=== PATIENT | female | born 1950 | race Caucasian/White ===

== ENCOUNTER 2019-07-12 08:34 | Day surgery (SDC) | payer MEDICARE, OTHER ==
[~2019-07-12 08:34] MED LIST: DORZOLAMIDE HCL 2%/TIMOLOL MALEAT 0.5% OPH SOLN 10 ML OD PRN; KETOROLAC TROMETHAMINE 0.45% 4 DROP/0.4 ML DROPERETTE OD PRN
[2019-07-12] MEDS ORDERED: CHONDR SU A NA/HYALUR INTRAOC KIT (SURGICARE) ONE (08:40)
[2019-07-12] MEDS ORDERED: EPINEPHRINE INJ/PF 1 MG/1 ML AMPULE ONE (08:40)
[2019-07-12] MEDS ORDERED: LIDOCAINE 1%/PHENYLEPHRINE 1.5% 1 ML VIAL ONE (08:40)
[2019-07-12] MEDS: TROPICAMIDE 1% OPH SOLN 3 ML OD PRN ×3 (10:15→10:35)
[2019-07-12] MEDS: CYCLOPENTOLATE 0.2%/PHENYLEPHRINE 1% OPH SOLN 2 ML OD PRN ×3 (10:15→10:35)
[2019-07-12] MEDS: BESIFLOXACIN HCL 0.6% OPH SUSP 5 ML BOTTLE OD PRN ×3 (10:15→11:08)
[2019-07-12] MEDS: TETRACAINE HCL 0.5% OPH SOLN 4 ML OD PRN ×3 (10:15→10:43)
[2019-07-12] MEDS ORDERED: MIDAZOLAM 2 MG/2 ML INJ ONE (10:31)
--- NOTE | 2019-07-12 13:00 | Operative Report ---
Operative Report-[facility] Operative Report: DATE OF SURGERY: 07-05 PREOPERATIVE DIAGNOSIS: Cataract, right eye POSTOPERATIVE DIAGNOSIS: Cataract, right eye OPERATION: Cataract extraction with insertion of an IOL of the right eye. Intraocular Lens Model: [[id number]] SURGEON: David Watkins MD ANESTHESIA: Topical PROCEDURE: After obtaining appropriate consent, the patient's right eye was prepped and draped in a sterile fashion as well as the surgeon in the sterile manner and cataract surgery was started. First a paracentesis blade was used to make a side-port incision. Viscoelastic was used to inflate the anterior chamber. Next a 2.4 mm incision was made with a 2.4 mm blade, clear corneal temporarily. A continuous capsulorrhexis was made using a cystotome and Utrata forceps. Following this hydrodissection was carried out to make the presley fully loose and mobile and it was rotated. Following this, a divide and conquer technique was used to phacoemulsify the presley. The remaining cortex was removed with an irrigation/aspiration. Provisc was instilled into the capsular bag to inflate the bag. The intraocular lens was placed. The remaining viscoelastic material was removed with irrigation/aspiration. Following this, the incision was found to be watertight. Besivance and Cosopt was instilled into the eye and a protective shield was placed over the eye. The patient was reurned to the postoperative recovery in a stable condition.
== END 2019-07-12 11:50 | disposition home or self-care (01) ==
LOC: SC 08:34
PROVIDERS: ATTEND Internal Medicine
DX: H25.89 Other age-related cataract (principal); H25.812 Combined forms of age-related cataract, left eye; H40.1112 Primary open-angle glaucoma, right eye, moderate stage; H40.012 Open angle with borderline findings, low risk, left eye; I10 Essential (primary) hypertension; J45.909 Unspecified asthma, uncomplicated; Z87.891 Personal history of nicotine dependence; Z79.51 Long term (current) use of inhaled steroids; Z79.899 Other long term (current) drug therapy; Z99.81 Dependence on supplemental oxygen; J43.9 Emphysema, unspecified
CPT/HCPCS: 00142; 66984; V2632; J2250; J3490 ×2; A9270; J0171; J2370; 142

== ENCOUNTER 2019-08-16 06:45 | Day surgery (SDC) | payer MEDICARE, OTHER ==
[~2019-08-16 06:45] MED LIST changes: -DORZOLAMIDE HCL 2%/TIMOLOL MALEAT 0.5% OPH SOLN 10 ML OD PRN; -KETOROLAC TROMETHAMINE 0.45% 4 DROP/0.4 ML DROPERETTE OD PRN; +KETOROLAC TROMETHAMINE 0.45% 4 DROP/0.4 ML DROPERETTE OS PRN
[2019-08-16] MEDS ORDERED: MIDAZOLAM 2 MG/2 ML INJ ONE (06:50)
[2019-08-16] MEDS: BESIFLOXACIN HCL 0.6% OPH SUSP 5 ML BOTTLE OS PRN ×4 (06:50→07:51)
[2019-08-16] MEDS: TETRACAINE HCL 0.5% OPH SOLN 4 ML OS PRN ×3 (06:50→07:30)
[2019-08-16] MEDS: TROPICAMIDE 1% OPH SOLN 15 ML OS PRN ×3 (06:50→07:10)
[2019-08-16] MEDS: CYCLOPENTOLATE 0.2%/PHENYLEPHRINE 1% OPH SOLN 2 ML OS PRN ×3 (06:50→07:10)
[2019-08-16] MEDS ORDERED: FENTANYL CITRATE INJ/PF 100 MCG/2 ML AMPUL ONE (06:51)
[2019-08-16] MEDS ORDERED: LIDOCAINE 1%/PHENYLEPHRINE 1.5% 1 ML VIAL ONE (07:13)
[2019-08-16] MEDS ORDERED: EPINEPHRINE INJ/PF 1 MG/1 ML AMPULE ONE (07:13)
[2019-08-16] MEDS ORDERED: CHONDR SU A NA/HYALUR INTRAOC KIT (SURGICARE) ONE (07:14)
[2019-08-16] MEDS: DORZOLAMIDE HCL 2%/TIMOLOL MALEAT 0.5% OPH SOLN 10 ML OS PRN ×2 (07:51)
--- NOTE | 2019-08-16 14:02 | Operative Report ---
Operative Report-[facility] Operative Report: DATE OF SURGERY: [08/16/2019] PREOPERATIVE DIAGNOSIS: Cataracts, left eye POSTOPERATIVE DIAGNOSIS: Cataract, left eye OPERATION: Cataract extraction with insertion of an IOL of the left eye. Intraocular Lens Model: [22.0 [id number]] reason for surgery was difficulty seeing small print SURGEON: David Watkins MD ANESTHESIA: Topical PROCEDURE: After obtaining appropriate consent, the patient's left eye was prepped and draped in a sterile fashion as well as the surgeon in the sterile manner and cataract surgery was started. First a paracentesis blade was used to make a side-port incision. Viscoelastic was used to inflate the anterior chamber. Next a 2.4 mm incision was made with a 2.4 mm blade, clear corneal temporarily. A continuous capsulorrhexis was made using a cystotome and Utrata forceps. Following this hydrodissection was carried out to make commands fully loose and mobile and it was rotated 90 degrees. Following this, a divide and conquer technique was used to phacoemulsify the lens. The remaining cortex was removed with an irrigation/aspiration. Provisc was instilled into the capsular bag to inflate the bag.The intracular lens was placed. The remaining viscoelastic material was removed with irrigation/aspiration. Following this, the incision was found to be watertight. Besivance and Cosopt was instilled into the eye and a protective shield was placed over the eye. The patient was turned to the postoperative recovery in a stable condition.
== END 2019-08-16 08:26 | disposition home or self-care (01) ==
LOC: SC 06:45
PROVIDERS: ATTEND Internal Medicine
DX: H25.812 Combined forms of age-related cataract, left eye (principal); H40.1112 Primary open-angle glaucoma, right eye, moderate stage; Z96.1 Presence of intraocular lens; I10 Essential (primary) hypertension; J45.909 Unspecified asthma, uncomplicated
CPT/HCPCS: 66984; 00142; V2632; J2250; J3490 ×2; A9270; J0171; J3010; J2370; 142

== ENCOUNTER 2019-12-25 15:28 | Emergency (ER) | payer MEDICARE, OTHER ==
--- NOTE | 2019-12-25 16:28 | ER Document Report ---
ED Medical Screen (RME) - General Chief Complaint: Urinary Incontinence Stated Complaint: URINARY PROBLEM Time Seen by Provider: 12/25/19 16:19 Primary Care Provider: GWEN MEADE DO [Primary Care Provider] - Follow up as needed Mode of Arrival: Wheelchair Information source: Patient, Relative Notes: 69-year-old female with history of dementia COPD presents to the emergency department with urinary and bowel incontinence since March. Reports symptoms are worse. Daughter reports patient has no control. Daughter reports patient was sent to the emergency department for possible infection. No other complaints such as fever vomiting diarrhea. I have greeted and performed a rapid initial assessment of this patient. A comprehensive ED assessment and evaluation of the patient, analysis of test results and completion of the medical decision making process will be conducted by additional ED providers. TRAVEL OUTSIDE OF THE [place] IN LAST 30 DAYS: No - Related Data Allergies/Adverse Reactions: No Known Allergies Allergy (Unverified 07/11/19 11:18) Past Medical History - Social History Frequency of alcohol use: None Drug Abuse: None - Past Medical History Cardiac Medical History: Reports: Hx Hypertension - CONTROLLED Denies: Hx Heart Attack Pulmonary Medical History: Reports: Hx Asthma Neurological Medical History: Denies: Hx Cerebrovascular Accident, Hx Seizures GI Medical History: Denies: Hx Hepatitis, Hx Hiatal Hernia, Hx Ulcer Infectious Medical History: Denies: Hx Hepatitis Past Surgical History: Denies: Hx Mastectomy, Hx Open Heart Surgery, Hx Pacemaker Physical Exam - Vital signs Vitals: Temp Pulse Resp BP Pulse Ox 97.4 F 88 18 139/73 H 95 12/25/19 15:37 12/25/19 15:37 12/25/19 15:37 12/25/19 15:37 12/25/19 15:37 Course - Vital Signs Vital signs: Temp Pulse Resp BP Pulse Ox 97.4 F 88 18 139/73 H 95 12/25/19 15:37 12/25/19 15:37 12/25/19 15:37 12/25/19 15:37 12/25/19 15:37 Doctor's Discharge - Discharge Referrals: GWEN MEADE DO [Primary Care Provider] - Follow up as needed
[2019-12-25 17:21] LABS: ABSOLUTE EOSINOPHILS # (AUTO) 0.3 10^3/uL (0.0-0.6); ABSOLUTE MONOCYTES (AUTO) 0.6 10^3/uL (0.1-1.4); ABSOLUTE NEUT (AUTO) 6.1 10^3/uL (1.7-8.2); BASOPHILS % (AUTO) 0.3 % (0-2); EOSINOPHILS % (AUTO) 3.3 % (0-6); HEMATOCRIT 36.5 % (36.0-47.0); HEMOGLOBIN 12.6 g/dL (12.0-15.5); LYMPHOCYTES % (AUTO) 12.8 % (13-45); MEAN CORPUSCULAR HEMOGLOBIN 28.5 pg (27.0-33.4); MEAN CORPUSCULAR HGB CONC 34.4 g/dL (32.0-36.0); MEAN CORPUSCULAR VOLUME 83 fl (80-97); MONOCYTES % (AUTO) 7.8 % (3-13); PLATELET COUNT 194 10^3/uL (150-450); RED BLOOD COUNT 4.41 10^6/uL (3.72-5.28); RED CELL DISTRIBUTION WIDTH 16.7 % (11.5-14.0); SEGMENTED NEUTROPHILS % (AUTO) 75.8 % (42-78); TOTAL CELLS COUNTED % (AUTO) 100 %; WHITE BLOOD COUNT 8.1 10^3/uL (4.0-10.5)
[2019-12-25 17:25] LABS: APPEARANCE,URINE CLOUDY; BILIRUBIN,URINE NEGATIVE (NEGATIVE); CALCIUM OXALATE CRYSTALS,URINE MANY /HPF; COLOR,URINE AMBER; GLUCOSE, URINE >=500 mg/dL (NEGATIVE); KETONES,URINE TRACE mg/dL (NEGATIVE); PROTEIN,URINE 100 mg/dL (NEGATIVE); URINE SPECIFIC GRAVITY 1.018
[2019-12-25 17:38] LABS: ALBUMIN 3.4 g/dL (3.5-5.0); ALKALINE PHOSPHATASE 178 U/L (38-126); ANION GAP 9 (5-19); ASPARTATE AMINO TRANSFERASE 47 U/L (14-36); BILIRUBIN,DIRECT 0.2 mg/dL (0.0-0.4); BILIRUBIN,TOTAL 0.8 mg/dL (0.2-1.3); BLOOD UREA NITROGEN 13 mg/dL (7-20); CALCIUM 9.2 mg/dL (8.4-10.2); CARBON DIOXIDE 28 mmol/L (22-30); CHLORIDE 99 mmol/L (98-107); GLUCOSE 90 mg/dL (75-110); POTASSIUM 3.2 mmol/L (3.6-5.0); TOTAL PROTEIN 6.6 g/dL (6.3-8.2)
[2019-12-25] MEDS ORDERED: NORMAL SALINE 500 ML IV ONE (21:27)
[2019-12-25] MEDS ORDERED: POTASSI CL 20 MEQ/50 ML RIDER 20 MEQ/50 ML RTUPB IV ONE (21:29)
[2019-12-25] MEDS ORDERED: CEFTRIAXONE 1 GM/D5W RTU 1 GM/50 ML RTUPB IV ONE ×2 (21:37→23:02)
--- NOTE | 2019-12-25 22:39 | RADIOLOGY REPORT (SQ) ---
EXAM DESCRIPTION: [facility]: XR ABDOMEN SUPINE AND ERECT WITH CHEST (ABD ACUTE SERIES) Views: 3 CLINICAL HISTORY: 69 years Female; FALL/INCONTINENT OF BOWEL/BLADDER; COMPARISON: None. FINDINGS: AP Chest: There is increased retrocardiac density with air-fluid level, consistent with large hiatal hernia, with bowel extending into the left hemithorax. No acute infiltrates. No pneumothorax or significant pleural effusion. Superior mediastinum is normal. No acute bone findings. Supine and erect AP abdomen: No bowel distention. No abdominal air-fluid levels or free air. No suspicious calcifications. Right upper quadrant surgical clips are noted. IMPRESSION: 1. Large left diaphragmatic/hiatal hernia. In the setting of trauma this could potentially be a traumatic hernia. Please correlate with clinical history. 2. No bowel distention 3. No acute pulmonary infiltrates 4. Previous cholecystectomy
--- NOTE | 2019-12-25 22:51 | RADIOLOGY REPORT (SQ) ---
EXAM DESCRIPTION: CT HEAD WITHOUT THEN WITH IV CONTRAST COMPLETED DATE/TME: 12/25/2019 21:29 CLINICAL HISTORY: 69 years, Female, GAIT DISTURBANCE/ BOWEL AND URINE INCONTINENCE COMPARISON: Prior CT head from 07/18/2019 TECHNIQUE: CT of the head was performed both prior to and after the uneventful administration of intravenous contrast. Coronal and sagittal reformations were created. Images stored on PACS. All CT scanners at this facility use dose modulation, iterative reconstruction, and/or weight based dosing when appropriate to reduce radiation dose to as low as reasonably achievable (ALARA). [facility]: Dose Right [facility]: CareDose [facility]: Dose Right [facility]: Teradose 4D [facility]: Anne Fogarty LIMITATIONS: None. FINDINGS: Evaluation of the brain parenchyma reveals mild periventricular and patchy subcortical white matter low attenuation. No acute intracranial hemorrhage, mass effect, or extra-axial fluid is seen. The ventricles and sulcal spaces are mildly enlarged. Globes and orbits show no acute normality. Mild rounded opacity is noted about the left maxillary antrum, either indicating a mucous retention cyst or inflammatory polyp. Remaining paranasal sinuses and mastoid air cells are clear. Calcifications are evident about the bilateral parasellar carotid arteries. There are no depressed skull fractures. Postcontrast images reveal no foci of abnormal enhancement. The sella is nearly completely empty. IMPRESSION: No acute intracranial hemorrhage or enhancing mass. Mild chronic microvascular ischemic change with generalized atrophy. TECHNICAL DOCUMENTATION: Quality ID # 436: Final reports with documentation of one or more dose reduction techniques (e.g., Automated exposure control, adjustment of the mA and/or kV according to patient size, use of iterative reconstruction technique) copyright 2011 [employer]- All Rights Reserved
--- NOTE | 2019-12-25 23:27 | RADIOLOGY REPORT (SQ) ---
EXAM DESCRIPTION: CT NECK WITH IV CONTRAST COMPLETED DATE/TME: 12/25/2019 21:33 CLINICAL HISTORY: 69 years, Female, GAIT DISTRUBANCE/INCONTINENT BOWEL/BLADDER COMPARISON: None. TECHNIQUE: Contrast enhanced CT of the neck was performed. Coronal and sagittal reformations were created. Images stored on PACS. All CT scanners at this facility use dose modulation, iterative reconstruction, and/or weight based dosing when appropriate to reduce radiation dose to as low as reasonably achievable (ALARA). [facility]: Dose Right [facility]: CareDose [facility]: Dose Right [facility]: Teradose 4D [facility]: [employer] LIMITATIONS: None. FINDINGS: Visualized portions of the lungs reveal a partially imaged solid nodule within the right upper lobe on image 453 of series 7 measuring approximately 2.3 x 1.2 cm in size, incompletely assessed on this examination. There is also likely a partially imaged right hilar lymph node measuring 1.7 x 1.5 cm in size. An additional 0.4 cm solid subpleural nodule is noted about the periphery of the right upper lobe on image 372 of series 7. There is also a solid 0.3 cm nodule within the left upper lobe on image 352 of series 7. Several additional sub-6 mm nodules are noted elsewhere about the visualized portions of both lungs. Thyroid gland enhances symmetrically. Hypopharynx, oropharynx, and nasopharynx show no suspicious abnormality. Bilateral parotid and submandibular glands appear symmetric in size and configuration. No suspicious deep cervical lymphadenopathy is appreciated. Mild calcifications are noted about the bilateral carotid bulbs. Otherwise, visualized neck vasculature appears opacify with contrast normally. This includes the bilateral vertebral arteries. Visualized portions of the globes and orbits show no suspicious abnormality. Mild rounded opacity is noted about the left maxillary antrum, either indicating a mucous retention cyst or inflammatory polyp. Bone windows show mild multilevel cervical spondylosis, designated primarily by intervertebral space narrowing and hypertrophic endplate spurring. There is also some degree of multilevel facet arthropathy. IMPRESSION: No acute findings within the neck. Partially imaged 17.5 mm solid pulmonary nodule within the upper lobe detected on incomplete chest CT. Several additional sub-6 mm nodules also throughout the visualized portions of both lungs with suspected right hilar lymphadenopathy. Recommend immediate non-contrast Chest CT for further evaluation. These guidelines do not apply to immunocompromised patients and patients with cancer. Follow up in patients with significant comorbidities as clinically warranted. For lung cancer screening, adhere to Lung-RADS guidelines. Reference: Radiology. 2017; 284(1):228-43. TECHNICAL DOCUMENTATION: Quality ID # 436: Final reports with documentation of one or more dose reduction techniques (e.g., Automated exposure control, adjustment of the mA and/or kV according to patient size, use of iterative reconstruction technique) copyright 2011 [employer]- All Rights Reserved
--- NOTE | 2019-12-26 03:23 | RADIOLOGY REPORT (SQ) ---
EXAM DESCRIPTION: CT CHEST WITHOUT IV CONTRAST COMPLETED DATE/TME: 12/26/2019 00:18 CLINICAL HISTORY: 69 years, Female, nodules noted COMPARISON: None. TECHNIQUE: Images stored on PACS. All CT scanners at this facility use dose modulation, iterative reconstruction, and/or weight based dosing when appropriate to reduce radiation dose to as low as reasonably achievable (ALARA). [facility]: Dose Right [facility]: CareDose [facility]: Dose Right [facility]: Teradose 4D [facility]: [employer] LIMITATIONS: None. FINDINGS: Chronic parenchymal lung change. A cluster of nodular densities identified right upper lobe, series 4 image 29. Overall this cluster measures approximately 2.4 x 5 cm. No effusion. No pneumothorax. Compressive atelectasis left lung base from a large diaphragmatic hernia. The heart is enlarged. No bulky mediastinal adenopathy. Thyroid is heterogeneous. Abdominal contents demonstrate heterogeneity to the left lobe of the liver with presumed focal ductal dilatation. This is poorly seen due to artifact. Visualized bones demonstrate age-appropriate osteoarthritis IMPRESSION: Imaging is degraded by patient motion, with resultant artifact. The best possible images were obtained. A cluster of small nodules identified right upper lobe, presumed postinflammatory. Compressive atelectasis left lung base may large diaphragmatic hernia. Heterogeneity to the left lobe of the liver, with apparent focal ductal dilatation. This is poorly seen TECHNICAL DOCUMENTATION: Quality ID # 436: Final reports with documentation of one or more dose reduction techniques (e.g., Automated exposure control, adjustment of the mA and/or kV according to patient size, use of iterative reconstruction technique) copyright 2011 [employer]- All Rights Reserved
--- NOTE | 2019-12-26 04:43 | ER Document Report ---
Entered by SAFIA SORIANO SCRIBE 12/25/192054 Acting as scribe for:LACEY KO MD ED General - General Chief Complaint: Urinary Incontinence Stated Complaint: URINARY PROBLEM Time Seen by Provider: 12/25/19 16:19 Primary Care Provider: GWEN MEADE DO [Primary Care Provider] - Follow up as needed Mode of Arrival: Wheelchair Information source: Patient, Relative - Daughter Notes: 69-year-old female with advanced stages of dementia presents with daughter to the emergency department complaining of urinary incontinence that has progressively gotten worse in the past week. Patient's daughter states that urinary and bowel movement incontinence has been occurring for the past three weeks but has gotten progressively worse the past week. Daughter stated that patient has been more unsteady with walking than her normal. Daughter reports that last they had a urinalysis and blood work done at her appointment. Patient's daughter reports that today patient's "whole bed was soaked". Patient's daughter said that she restricts liquid past 9 pm and states that patient has not had a lot of liquids at nighttime. Patient went to the bathroom after getting out of bed and while disposing of her depends, "she stood and void ed right there" before making it to the toilet. Daughter stated that when she asked if patient was going to the bathroom, patient said she did not know until she looked down to see the urine. Patient's daughter reports no associated odor, cloudiness with urine and watery bowel movements. Patient's daughter stated that she tried bananas to help with diarrhea. Patient reports a fall in the bathtub last week that resulted in a "bruise on the buttocks". Patient has been living with daughter since Mar, 2019. TRAVEL OUTSIDE OF THE [place] IN LAST 30 DAYS: No - Related Data Allergies/Adverse Reactions: No Known Allergies Allergy (Unverified 07/11/19 11:18) Past Medical History - General Information source: Patient, Relative - Social History Smoking Status: Never Smoker Cigarette use (# per day): No Chew tobacco use (# tins/day): No Frequency of alcohol use: None Drug Abuse: None Lives with: Family Family History: Reviewed & Not Pertinent Patient has suicidal ideation: No Patient has homicidal ideation: No - Past Medical History Cardiac Medical History: Reports: Hx Hypertension - CONTROLLED Pulmonary Medical History: Reports: Hx Asthma Surgical Hx: Negative Review of Systems - Review of Systems Constitutional: See HPI, Weakness EENT: No symptoms reported Cardiovascular: No symptoms reported Respiratory: No symptoms reported Gastrointestinal: See HPI, Fecal incontinence Genitourinary: See HPI, Incontinence Female Genitourinary: No symptoms reported Musculoskeletal: No symptoms reported Skin: No symptoms reported Hematologic/Lymphatic: No symptoms reported Neurological/Psychological: No symptoms reported -: Yes All other systems reviewed and negative Physical Exam - Vital signs Vitals: Temp Pulse Resp BP Pulse Ox 97.4 F 88 18 139/73 H 95 12/25/19 15:37 12/25/19 15:37 12/25/19 15:37 12/25/19 15:37 12/25/19 15:37 - Notes Notes: Physical Exam: General: Alert, appears well and pleasant. HEENT: Normocephalic. Atraumatic. PERRL. Extraocular movements intact. Oropharynx clear. Neck: Supple. Non-tender. Respiratory: No respiratory distress. Clear and equal breath sounds bilaterally. Cardiovascular: Regular rate and rhythm. Abdominal: Normal Inspection. Non-tender. No distension. Normal Bowel Sounds. Back: No gross abnormalities. Extremities: Moves all four extremities. Upper extremities: Normal inspection. Normal ROM. Lower extremities: Normal inspection. No edema. Normal ROM. Neurological: Pleasantly demented. AAOx4. Normal speech. Psychological: Normal affect. Normal Mood. Skin: Warm. Dry. Normal color. Course - Re-evaluation Re-evalutation: 12/26/19 04:37 Patient is resting comfortably not showing any signs of distress at this time. - Vital Signs Vital signs: Temp Pulse Resp BP Pulse Ox 98.1 F 84 16 144/78 H 97 12/26/19 00:09 12/26/19 00:09 12/26/19 00:09 12/26/19 00:09 12/26/19 00:09 - Laboratory Result Diagrams: 12/25/19 16:56 12/25/19 16:56 Laboratory results interpreted by me: 12/25/19 12/25/19 12/25/19 16:56 16:56 16:56 RDW 16.7 H Lymph % (Auto) 12.8 L Sodium 135.9 L Potassium 3.2 L AST 47 H Alkaline Phosphatase 178 H Albumin 3.4 L Urine Protein 100 H Urine Glucose (UA) >=500 H Urine Ketones TRACE H Urine Blood MODERATE H Urine Urobilinogen 4.0 H Leukocyte Esterase Rfl SMALL H - Diagnostic Test Radiology reviewed: Image reviewed, Reports reviewed Radiology results interpreted by me: 12/26/19 04:37 CT of head did not disclose any acute process of any stroke. Microvascular ischemic changes noted. Chest CT without contrast shows multiple nodules in the right upper lung. Atelectasis in the left base secondary to large hiatal hernia compressing lung tissue. Nodules in lung appear to be inflammatory. No acute infiltrate. Acute abdominal series shows no acute process no obstruction in the abdomen and no acute cardiopulmonary disease noted. Discharge - Discharge Clinical Impression: Urinary tract infection, Pulmonary nodules, Advancing dementia Condition: Fair Disposition: HOME, SELF-CARE Instructions: Urinary Tract Infection ([facility]) Prescriptions: Ciprofloxacin HCl [Cipro 500 mg Tablet] 500 mg PO BID #20 tablet Referrals: GWEN MEADE DO [Primary Care Provider] - Follow up as needed I personally performed the services described in the documentation, reviewed and edited the documentation which was dictated to the scribe in my presence, and it accurately records my words and actions.
[2019-12-26 05:15] VITALS: BP 140/76
[2019-12-26] MEDS ORDERED: CEFTRIAXONE 1 GM/D5W RTU 1 GM/50 ML RTUPB IV ONE (21:37)
== END 2019-12-26 05:10 | disposition home or self-care (01) ==
LOC: ER 15:28
DX: N39.0 Urinary tract infection, site not specified (principal); R91.8 Other nonspecific abnormal finding of lung field; F03.90 Unspecified dementia, unspecified severity, without behavioral disturbance, psychotic disturbance, mood disturbance, and anxiety; R32 Unspecified urinary incontinence; R15.9 Full incontinence of feces; R26.81 Unsteadiness on feet; R53.1 Weakness; K44.9 Diaphragmatic hernia without obstruction or gangrene; J98.11 Atelectasis; I10 Essential (primary) hypertension; J45.909 Unspecified asthma, uncomplicated
CPT/HCPCS: 36415; 70470; 70491; 71250; 74022; 80053; 81001; 85025; 96361; 96365; 96366; 96368; 99284; J0696; J3480; J7040

== ENCOUNTER 2020-01-23 18:00 | Emergency (ER) | payer MEDICARE ==
--- NOTE | 2020-01-23 19:37 | ER Document Report ---
ED Medical Screen (RME) - General Chief Complaint: Dizziness Stated Complaint: HIGH BLOOD PRESSURE/DIZZYNESS Time Seen by Provider: 01/23/20 19:26 Primary Care Provider: GWEN MEADE DO [Primary Care Provider] - Follow up as needed Mode of Arrival: Ambulatory Information source: Patient Notes: 69-year-old female presented to ED for complaint of elevated blood pressure and dizziness. Daughter states that this morning she was trying to get her up from the recliner chair and she tried to stand up got dizzy and fell back into the chair. He states she took multiple blood pressures and all of the blood pressures were very high so she called the doctor and the doctor told her to come to the emergency room. Her blood pressure is normal at this time at 128/62 on the left arm manual cuff. With the patient's wrist cuff it was 136/84. Patient states she is not having any pain anywhere she is just dizzy. Daughter states she has been walking a lot slower than she normally does for the last 5 months. She states she is not sure if it is due to the dementia or if there is something else she is not voicing to the daughter this going on. She did fall on Tuesday and off the toilet with multiple bruises resulting the next day. I have greeted and performed a rapid initial assessment of this patient. A comprehensive ED assessment and evaluation of the patient, analysis of test results and completion of medical decision making process will be conducted by an additional ED providers. TRAVEL OUTSIDE OF THE [place] IN LAST 30 DAYS: No - Related Data Allergies/Adverse Reactions: No Known Allergies Allergy (Unverified 07/11/19 11:18) Past Medical History - Past Medical History Cardiac Medical History: Reports: Hx Hypertension - CONTROLLED Denies: Hx Heart Attack Pulmonary Medical History: Reports: Hx Asthma Neurological Medical History: Denies: Hx Cerebrovascular Accident, Hx Seizures GI Medical History: Denies: Hx Hepatitis, Hx Hiatal Hernia, Hx Ulcer Infectious Medical History: Denies: Hx Hepatitis Past Surgical History: Denies: Hx Mastectomy, Hx Open Heart Surgery, Hx Pacemaker Physical Exam - Vital signs Vitals: Temp Pulse Resp BP Pulse Ox 98.8 F 93 20 130/63 H 95 01/23/20 18:24 01/23/20 18:24 01/23/20 18:24 01/23/20 18:24 01/23/20 18:24 Course - Vital Signs Vital signs: Temp Pulse Resp BP Pulse Ox 98.8 F 93 20 130/63 H 95 01/23/20 18:24 01/23/20 18:24 01/23/20 18:24 01/23/20 18:24 01/23/20 18:24 Doctor's Discharge - Discharge Referrals: GWEN MEADE DO [Primary Care Provider] - Follow up as needed
[2020-01-23 20:25] LABS: ABSOLUTE BASOPHILS # (AUTO) 0.1 10^3/uL (0.0-0.2); ABSOLUTE EOSINOPHILS # (AUTO) 0.1 10^3/uL (0.0-0.6); ABSOLUTE MONOCYTES (AUTO) 0.7 10^3/uL (0.1-1.4); ABSOLUTE NEUT (AUTO) 7.8 10^3/uL (1.7-8.2); BASOPHILS % (AUTO) 0.5 % (0-2); EOSINOPHILS % (AUTO) 0.6 % (0-6); HEMATOCRIT 41.8 % (36.0-47.0); HEMOGLOBIN 13.9 g/dL (12.0-15.5); LYMPHOCYTES % (AUTO) 10.9 % (13-45); MEAN CORPUSCULAR HEMOGLOBIN 28.4 pg (27.0-33.4); MEAN CORPUSCULAR HGB CONC 33.3 g/dL (32.0-36.0); MEAN CORPUSCULAR VOLUME 85 fl (80-97); MONOCYTES % (AUTO) 7.2 % (3-13); PLATELET COUNT 221 10^3/uL (150-450); RED CELL DISTRIBUTION WIDTH 18.3 % (11.5-14.0); SEGMENTED NEUTROPHILS % (AUTO) 80.8 % (42-78); TOTAL CELLS COUNTED % (AUTO) 100 %; WHITE BLOOD COUNT 9.6 10^3/uL (4.0-10.5)
[2020-01-23 20:42] LABS: ALBUMIN 4.2 g/dL (3.5-5.0); ALKALINE PHOSPHATASE 192 U/L (38-126); ANION GAP 8 (5-19); ASPARTATE AMINO TRANSFERASE 36 U/L (14-36); BILIRUBIN,DIRECT 0.1 mg/dL (0.0-0.4); BILIRUBIN,TOTAL 1.3 mg/dL (0.2-1.3); BLOOD UREA NITROGEN 17 mg/dL (7-20); CALCIUM 9.9 mg/dL (8.4-10.2); CARBON DIOXIDE 29 mmol/L (22-30); CHLORIDE 97 mmol/L (98-107); GLUCOSE 92 mg/dL (75-110); POTASSIUM 3.8 mmol/L (3.6-5.0); TOTAL PROTEIN 7.5 g/dL (6.3-8.2)
--- NOTE | 2020-01-23 23:53 | ER Document Report ---
ED General - General Chief Complaint: Dizziness Stated Complaint: HIGH BLOOD PRESSURE/DIZZYNESS Time Seen by Provider: 01/23/20 19:26 Primary Care Provider: GWEN MEADE DO [Primary Care Provider] - Follow up in 3-5 days RUBEN ODONNELL MD [ACTIVE STAFF] - Follow up in 1 week Mode of Arrival: Ambulatory Notes: 69-year-old female with history of COPD presents for dizziness upon standing. Patient has fallen a few times due to this. Most recent was today. Daughter states that she was standing up from chair that she was sitting in at breakfast and felt dizzy and fell back. Denies hitting head or LOC. Daughter states similar episode happened on Tuesday when she stood up from the toilet, patient felt dizzy upon standing and fell backwards. Daughter was able to catch her before she hit her head. Patient states that this is been intermittently happening for the past few months and states it usually happens a few times a week however it is become more often. Patient denies any fever, chills, nausea vomiting, chest pain, changes with shortness of breath, syncope, presyncope. TRAVEL OUTSIDE OF THE [place] IN LAST 30 DAYS: No - Related Data Allergies/Adverse Reactions: No Known Allergies Allergy (Verified 01/23/20 19:37) Home Medications: donezepril, sertraline, mybetriq, cardizem er, trazadone, mv, fe esomeprazole Past Medical History - General Information source: Patient - Social History Smoking Status: Former Smoker Chew tobacco use (# tins/day): No Frequency of alcohol use: None Drug Abuse: None Family History: Reviewed & Not Pertinent Patient has suicidal ideation: No Patient has homicidal ideation: No - Past Medical History Cardiac Medical History: Reports: Hx Hypertension - CONTROLLED Denies: Hx Heart Attack Pulmonary Medical History: Reports: Hx Asthma Neurological Medical History: Denies: Hx Cerebrovascular Accident, Hx Seizures GI Medical History: Denies: Hx Hepatitis, Hx Hiatal Hernia, Hx Ulcer Infectious Medical History: Denies: Hx Hepatitis Past Surgical History: Denies: Hx Mastectomy, Hx Open Heart Surgery, Hx Pacemaker Review of Systems - Review of Systems Notes: Constitutional: Negative for fever. HENT: Negative for sore throat. Eyes: Negative for visual changes. Cardiovascular: Negative for chest pain. Respiratory: Negative for shortness of breath. Gastrointestinal: Negative for abdominal pain, vomiting or diarrhea. Genitourinary: Negative for dysuria. Musculoskeletal: Negative for back pain. Skin: Negative for rash. Neurological: Positive for dizziness. Negative for headaches, weakness or numbness. 10 point ROS negative except as marked above and in HPI. Physical Exam - Vital signs Vitals: Temp Pulse Resp BP Pulse Ox 98.8 F 93 20 130/63 H 95 01/23/20 18:24 01/23/20 18:24 01/23/20 18:24 01/23/20 18:24 01/23/20 18:24 - Notes Notes: GENERAL: Well-appearing, well-nourished and in no acute distress. HEAD: Atraumatic, normocephalic. EYES: Pupils equal round and reactive to light, extraocular movements intact, sclera anicteric, conjunctiva are normal. ENT: TMs normal. NECK: Normal range of motion, supple without lymphadenopathy or JVD. LUNGS: Breath sounds clear to auscultation bilaterally and equal. No wheezes rales or rhonchi. HEART: Regular rate and rhythm without murmurs, rubs or gallops. ABDOMEN: Soft, nontender, normoactive bowel sounds. No guarding, no rebound. No masses appreciated. EXTREMITIES: Normal range of motion, no pitting or edema. No clubbing or cyanosis. NEUROLOGICAL: Cranial nerves II through XII grossly intact. No facial droop. No tongue deviation. Carton Forming Machine Adjuster strength equal bilaterally. Lrrmpq-[id number]-etkjxd intact. PERRLA. EOM intact. Upper extremity and lower extremity strength e qual bilaterally. PSYCH: Normal mood, normal affect. SKIN: Warm, Dry, normal turgor, no rashes or lesions noted. Course - Re-evaluation Re-evalutation: 01/23/20 nontoxic, well-appearing 69-year-old female presents with dizziness upo n standing. Neuro grossly intact. Patient usually ambulates with walker. PE is otherwise unremarkable. Had patient sit up from laying down position and states she felt dizzy. Allow 30 seconds to pass before standing patient up and patient was able to stand up without difficulty. Patient states she did not feel dizzy. Patient did not fall. EKG shows accelerated junctional rhythm. Lab work so far is unremarkable. Daughter was also concerned with possible UTI and states that this happened during her last ER visit and she was diagnosed with a UTI. 01/24/20 02:17 UA shows mod leuk esterase with 1-5 WBC. Will treat due to comorbidities and send off for urine culture. Pt to be given referral to [facility] due to EKG. patient patient's daughter given strict return precautions and close follow-up with PCP and [facility]. Discussed all results with patient and patient's daughter. Patient and patient's daughter voiced understanding and agree with plan of care - Vital Signs Vital signs: Temp Pulse Resp BP Pulse Ox 97.7 F 77 20 132/58 H 96 01/24/20 02:48 01/24/20 02:48 01/24/20 02:48 01/24/20 02:48 01/24/20 02:48 - Laboratory Result Diagrams: 01/23/20 20:00 01/23/20 20:00 Laboratory results interpreted by me: 01/23/20 01/23/20 01/24/20 20:00 20:00 01:30 RDW 18.3 H Lymph % (Auto) 10.9 L Seg Neutrophils % 80.8 H Sodium 134.0 L Chloride 97 L ALT 39 H Alkaline Phosphatase 192 H Urine Protein 100 H Urine Ketones TRACE H Urine Bilirubin SMALL H Urine Urobilinogen 2.0 H Leukocyte Esterase Rfl MODERATE H Discharge - Discharge Clinical Impression: Dizziness, Acute UTI, Accelerated junctional rhythm Condition: Stable Disposition: HOME, SELF-CARE Instructions: Dizziness ([facility]), Nitrofurantoin ([facility]), Urinary Tract Infection ( [facility]), Vertigo ([facility]) Additional Instructions: Your work-up today was reassuring. Your urine did show a urinary tract infection. Your EKG showed an accelerated junctional rhythm. Please follow-up with [facility] listed in 3 to 5 days. When sitting up or standing please take your time to prevent falls from dizziness. Please follow-up with your primary care doctor in 2 to 3 days. Return immediately to ER for any worsening symptoms, including increased dizziness, feeling like you are going to pass out, passing out, hitting your head, confusion, fever, flank pain, abdominal pain, nausea/vomiting, chest pain, shortness of breath, diarrhea, constipation, or any other symptoms that are concerning to you. Prescriptions: Nitrofurantoin Monohyd/M-Cryst [Macrobid 100 mg Capsule] 100 mg PO BID #13 cap Referrals: GWEN MEADE DO [Primary Care Provider] - Follow up in 3-5 days RUBEN ODONNELL MD [ACTIVE STAFF] - Follow up in 1 week
[2020-01-24 01:51] LABS: APPEARANCE,URINE CLOUDY; BILIRUBIN,URINE SMALL (NEGATIVE); COLOR,URINE AMBER; GLUCOSE, URINE NEGATIVE (NEGATIVE); KETONES,URINE TRACE mg/dL (NEGATIVE); PROTEIN,URINE 100 mg/dL (NEGATIVE); URINE SPECIFIC GRAVITY 1.026
[2020-01-24 02:01] LABS: RBC,URINE NONE SEEN /HPF
[2020-01-24] MEDS ORDERED: NITROFURANTOIN MONOHYD/M-CRYST 100 MG CAPSULE PO ONE (02:26)
[2020-01-24 02:50] VITALS: BP 132/58
--- NOTE | 2020-01-24 09:58 | EKG REPORT ---
SEVERITY:- ABNORMAL ECG - SINUS RHYTHM : Confirmed by: Aashish Camacho 24-Jan-2020 09:58:07
== END 2020-01-24 02:45 | disposition home or self-care (01) ==
LOC: ER 18:00
DX: N39.0 Urinary tract infection, site not specified (principal); R42 Dizziness and giddiness; I45.6 Pre-excitation syndrome; I10 Essential (primary) hypertension; Z95.0 Presence of cardiac pacemaker
CPT/HCPCS: 93005; 99283; 36415; 87086; 83690; 85025; 80053; 81001; 84484; 93010; A9270; J8499